=== PATIENT | female | born 1950 | race Caucasian/White ===

== ENCOUNTER 2019-10-03 10:43 | Outpatient (CLI) | payer MEDICARE, SELFPAY ==
--- NOTE | ~2019-10-03 | US_ITS ---
EXAMINATION: US retroperitoneal comp DATE: 10/03/2019 12:19 INDICATION: Nephrolithiasis. TECHNIQUE: Multiple ultrasound grayscale images of the kidneys were obtained. COMPARISON: None. FINDINGS: The right kidney measures 11.4 x 4.6 x 6.2 cm. The left kidney measures 10.9 x 4.2 x 4.9 cm. The kidn eys demonstrate normal parenchymal echogenicity. There is cortical thinning of the kidneys. There is no hydronephrosis. The bladder is normal. IMPRESSION: 1. Cortical thinning of the kidneys. No hydronephrosis. Reviewed, dictated and finalized at location A.
== END 2019-10-03 10:44 | disposition home or self-care (01) ==
DX: N20.0 Calculus of kidney (principal)
CPT/HCPCS: 76770; 87077; 87086; 87088; 87186

== ENCOUNTER 2022-10-30 14:22 | Outpatient (RCR) | payer MEDICARE, SELFPAY ==
--- NOTE | 2022-10-30 15:34 | OTOPEVAL1 ---
Assessment and note entered by TAMIKA Orellana/Mauro, CHT Evaluation Information Assessment Status Evaluation Diagnosis Multiple Sclerosis Onset diagnosed in 2000 Subjective Information Patient presents today for power wheelchair evaluation. She comes with a dignosis of MS. She currently has a power w/c that is 6 years old. She has been evaluated at our clinic - please refer to scanned w/c evaluation form for details. Reported Pain Level Pain Score 7: Self Report Assessment OT Clinical Summary Sadia is unable to safely and independently ambulate household distances due to her current impairments of weakness and decreased functional balance. She is at risk for falls with decreased balance as well as has a history of falls. She demonstrates significant functional limitations that impairs her ability to safely participate in mobility related ADLs. These limitations cannot be sufficiently resolved by the use of an appropriately fitted cane, walker, manual w/c, or scooter. A power w/c will provide her a safe means of functional mobility necessary for completion of MRADLs in a timely manner. She has been evaluated and demonstrates the gross motor and cognitive ability to safely operate a power w/c. No care plan initiated as this was for evaluation only. Discharging from OT. Plan of Care OT Services Indicated No These treatments will address the objective and functional deficits as defined above. The patient will be advanced safely and appropriately in order for the patient to progress towards his/her prior level of function. Additional exercises will be introduced and as well as a comprehensive home exercise program upon discharge, if needed, ?to ensure carryover of functional gains achieved in the clinic. This treatment plan has been reviewed and agreement upon by the patient.
--- NOTE | 2022-10-30 15:37 | OTOPDC ---
Assessment and note entered by TAMIKA Orellana/Mauro, CHT Evaluation Information Assessment Status Evaluation Diagnosis Multiple Sclerosis Onset diagnosed in 2000 Subjective Information Patient presents today for power wheelchair evaluation. She comes with a diagnosis of MS. She currently has a power w/c that is 6 years old. She has been evaluated at our clinic - please refer to scanned w/c evaluation form for details. Reported Pain Level Pain Score 7: Self Report Assessment OT Clinical Summary Sadia is unable to safely and independently ambulate household distances due to her current impairments of weakness and decreased functional balance. She is at risk for falls with decreased balance as well as has a history of falls. She demonstrates significant functional limitations that impairs her ability to safely participate in mobility related ADLs. These limitations cannot be sufficiently resolved by the use of an appropriately fitted cane, walker, manual w/c, or scooter. A power w/c will provide her a safe means of functional mobility necessary for completion of MRADLs in a timely manner. She has been evaluated and demonstrates the gross motor and cognitive ability to safely operate a power w/c. No care plan initiated as this was for evaluation only. Discharging from OT. Plan of Care OT Services Indicated No
== END 2022-11-01 09:47 | disposition home or self-care (01) ==
LOC: ANHOT 14:22
PROVIDERS: Visit Provider Family Medicine Sports Medicine
DX: G35 Multiple sclerosis (principal)
CPT/HCPCS: 97167